=== PATIENT | female | born 1955 | race Caucasian/White ===

== ENCOUNTER → 2019-11-28 13:50 | Outpatient (CLI) | payer OTHER, SELFPAY ==
--- NOTE | ~2019-11-28 | MR_ITS ---
EXAMINATION: MR knee RT wo con DATE: 11/28/2019 14:44 INDICATION: Chronic right knee pain TECHNIQUE: Magnetic resonance imaging (MRI) of the right knee was performed without intravenous contr ast. Sequences included coronal PD-weighted FSE, coronal PD-weighted FS FSE, sagittal T2-weighted FS E, sagittal PD-weighted FS FSE and axial PD weighted fat saturated FSE. COMPARISON: None. FINDINGS: Medial compartment: Medial extrusion of the medial meniscal body. Both the body and posterior horn are small suggesting c hange of prior partial meniscectomy. There is a tear with small meniscal flap extending anteriorly fr om near the posterior root of the medial meniscus. There is also a small longitudinally oriented tear contacting the cephalad articular surface along the more medial posterior horn. There is extensive f ull/near full-thickness chondral ulceration involving the anterior two thirds of the medial tibial pl ateau as well as the anterior to central weightbearing medial femoral condyle. There is subarticular sclerosis and edema along the region of ulceration with suggestion of very early remodeling of the ar ticular cortices. Moderate size marginal osteophytes are present. Lateral compartment: Lateral meniscus is normal. Small region of partial-thickness chondral fissuring without degenerative subarticular changes at the central aspect of the lateral tibial plateau. Partial thickness cartilag e loss with smooth chondral surface along the posterior weightbearing lateral femoral condyle. Small marginal osteophytes are present. Patellofemoral compartment: Deep chondral fissuring at the patellar apical ridge centered over a small region of blisterlike chito mination at the bone chondral interface which measures approximately 6 mm craniocaudal and 3-4 mm med ial to lateral. Deep fissuring at the trochlear groove with likely minimal chondral delamination exte nding slightly laterally with additional linear increased signal extending 11 mm craniocaudally along the bone chondral interface at the the medial side of the lateral trochlea on the immediately adjace nt sagittal image. There is minimal cortical irregularity along the trochlear groove. Small marginal osteophytes are present. Ligaments and tendons: Anterior and posterior cruciate ligaments are normal. The medial collateral ligament and fibular pascale ateral ligament complex are normal. The extensor mechanism is normal. The visualized medial and later al hamstring tendons as well as the iliotibial band are normal. Fluid: Moderate-sized right knee joint effusion. No loose osteochondral bodies identified. Osseous/other: Mild osteoarthritis at the proximal tibiofibular articulation with likely intraosseous ganglion cyst at the head of the fibula with tiny neck to communicate with the joint space through a tiny cortical defect. No fracture or pathologic marrow replacing process. IMPRESSION: 1. Small body and posterior horn of the medial meniscus likely related to prior partial meniscectomy with residual/recurrent complex tear at the posterior horn. 2. 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 3. Mild lateral and patellofemoral osteoarthritis more prominent in the patellofemoral compartment wh ere there is extensive moderate to high-grade chondromalacia. 4. Moderate sized right knee joint effusion. Reviewed, dictated and finalized at location A. IMPRESSION: 1. Small body and posterior horn of the medial meniscus likely related to prior partial meniscectomy with residual/recurrent complex tear at the posterior hor n. 2. Severe medial compartment osteoarthritis with extensive high-grade chondroma lacia. 3. Mild lateral and patellofemoral osteoarthritis more
--- NOTE | ~2019-11-28 | XR_ITS ---
EXAMINATION: XR knee RT 3V DATE: 11/28/2019 14:55 INDICATION: Chronic right knee pain TECHNIQUE: Three views of the right knee were obtained. COMPARISON: None. FINDINGS: Alignment is normal. No fracture or osteochondral lesion. There is severe narrowing in the medial compartment. A moderate size knee joint effusion is present. There is moderate osteoarthritis of the lateral and patellofemoral compartments. Soft tissues are unremarkable. IMPRESSION: 1. Tricompartmental osteoarthritis, worst in the medial compartment. 2. Moderate-sized joint effusion. Reviewed, dictated and finalized at location A.
== END ==
PROVIDERS: PCP Nurse Practitioner; Visit Provider Family Medicine
DX: M25.561 Pain in right knee (principal); G89.29 Other chronic pain; M17.0 Bilateral primary osteoarthritis of knee; M25.461 Effusion, right knee; M94.261 Chondromalacia, right knee
CPT/HCPCS: 73562; 73721

== ENCOUNTER 2021-03-04 10:36 | Outpatient (CLI) | payer OTHER, SELFPAY ==
--- NOTE | ~2021-03-04 | MM_ITS ---
EXAMINATION: MM screening [facility] BI w demi HISTORY: Screening TECHNIQUE: Craniocaudal and mediolateral oblique 3-D tomosynthesis images were obtained and synthetic 2-D images were generated. CAD analysis was submitted and interpreted. COMPARISON: 05/08/2018 BREAST PARENCHYMAL COMPOSITION: The breasts are heterogenously dense, which may obscure small masses FINDINGS: There is no evidence of suspicious mass, calcification, or architectural distortion to sugg est malignancy in either breast. There has been no suspicious interval change. IMPRESSION: 1. No mammographic evidence of malignancy. 2. Recommend routine screening mammography in one year. BI-RADS Category 1: Negative Reviewed, dictated and finalized at location A. 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
== END 2021-03-04 10:37 | disposition home or self-care (01) ==
PROVIDERS: PCP Family Medicine
DX: Z12.31 Encounter for screening mammogram for malignant neoplasm of breast (principal)
CPT/HCPCS: 77063; 77067

== ENCOUNTER 2022-06-25 07:31 | Outpatient (CLI) | payer OTHER, SELFPAY ==
--- NOTE | ~2022-06-25 | CT_ITS ---
CT Scan of the Chest without Contrast: Clinical Indication: Lung cancer screening, smoking history Technique: Contiguous sections were acquired throughout the chest without intravenous contrast. Dose reduction technique was used on this scan by utilizing automated exposure control and iterative recon struction technique. The dose-length product (DLP) was 282.56 mGy-cm. Findings: There is no evidence of any significant mediastinal, hilar or axillary lymphadenopathy. Mild atherosc lerotic calcifications are noted. There is no evidence of pleural or pericardial effusion. There is a 2 mm nodule at the left lung apex. No other pulmonary nodule identified. Images through the upper abdomen reveal atrophic right kidney. Impression: Lung RADS 2: Benign appearance. 12 month follow-up screening CT advised. Reviewed, dictated and finalized at location . Impression: Lung RADS 2: Benign appearance. 12 month follow-up screening CT advised.
== END 2022-06-25 07:32 | disposition home or self-care (01) ==
LOC: ANHIMG 07:34
PROVIDERS: PCP Family Medicine; Visit Provider Nurse Practitioner Family
DX: Z12.2 Encounter for screening for malignant neoplasm of respiratory organs (principal); Z87.891 Personal history of nicotine dependence
CPT/HCPCS: 71271

== ENCOUNTER 2022-07-09 10:17 | Outpatient (CLI) | payer OTHER, SELFPAY ==
--- NOTE | ~2022-07-09 | MM_ITS ---
EXAMINATION: MM screening [facility] BI w demi HISTORY: Screening mammogram TECHNIQUE: Craniocaudal and mediolateral oblique 3-D tomosynthesis images were obtained and synthetic 2-D images were generated. CAD analysis was submitted and interpreted. COMPARISON: 03/04/2021, 05/08/2018 BREAST PARENCHYMAL COMPOSITION: The breasts are heterogeneously dense, which may obscure small masses . FINDINGS: No suspicious mass, calcification, or architectural distortion are identified in either nika ast to suggest malignancy. There has been no suspicious interval change. IMPRESSION: 1. No mammographic evidence of malignancy. 2. Recommend routine screening mammography in one year. BI-RADS Category 1: Negative Reviewed, dictated and finalized at location A.
== END 2022-07-09 10:18 | disposition home or self-care (01) ==
LOC: ANHIMG 10:20
PROVIDERS: PCP Family Medicine; Visit Provider Nurse Practitioner Family
DX: Z12.31 Encounter for screening mammogram for malignant neoplasm of breast (principal)
CPT/HCPCS: 77063; 77067